=== PATIENT | male | born 1945 | race Caucasian/White ===

== ENCOUNTER → 2020-11-30 | Outpatient (CLI) | payer MEDICARE ==
[~2020-11-30] MED LIST: Acetaminophen325 M1 PO; NYSTATIN100000 UN1 SS; OMEP20ER PO; SIMV40 PO; TYLENOL PM PO; VISBIOME 112.51 EACH PO
[2020-11-30 16:35] LABS: Source, Urine Clean Catch
[2020-11-30 19:38] LABS: Bilirubin, Urine Neg (Neg); Blood, Urine 4+ (Neg); Glucose Qualitative, Urine Neg (Neg); Ketones, Urine 1+ (Neg); Leukocyte Esterase, Urine 3+ (Neg); Nitrite, Urine Neg (Neg); Protein, Urine 3+ (Neg); Specific Gravity, Urine 1.015 (1.003-1.022); Urobilinogen, Urine NORM (Normal)
[2020-11-30 19:39] LABS: Appearance, Urine Turbid (Clear); Color, Urine Yellow (P-Yellow); White Blood Cells, Urine TNTC /hpf (0-5)
[2020-11-30 19:41] LABS: Bacteria Mod /hpf; Red Blood Cells, Urine 0-2 /hpf (0-2); Squamous Epithelial Cells Not Seen /hpf (Few)
== END ==
LOC: PLD 16:33 → LAB SHORT 16:33 → LAB FUT 11-30 15:35
PROVIDERS: Nurse Practitioner
DX: R33.9 Retention of urine, unspecified (principal)
CPT/HCPCS: 81001; 87077; 87086; 87186

== ENCOUNTER 2021-01-06 12:43 | Inpatient (IN) | payer MEDICARE ==
[~2021-01-06] VITALS: Ht 180.3 cm; Wt 89.0 kg
[2021-01-06 13:22] LABS: Source, Urine Catheter
[2021-01-06 13:30] LABS: BASOPHILS ABSOLUTE AUTO 0.02 K/mm3 (0.00-0.23); BASOPHILS PERCENT AUTO 0 % (0-2); EOSINOPHILS ABSOLUTE AUTO 0.02 K/mm3 (0.00-0.68); EOSINOPHILS PERCENT AUTO 0 % (0-6); Hematocrit 41.4 % (37.0-53.0); Hemoglobin 13.4 g/dL (13.5-17.5); IMMATURE GRAN ABSOLUTE AUTO 0.03 K/mm3 (0.00-0.10); IMMATURE GRAN PERCENT AUTO 0 % (0-1); LYMPHOCYTES ABSOLUTE AUTO 0.53 K/mm3 (0.84-5.20); LYMPHOCYTES PERCENT AUTO 6 % (21-46); MONOCYTES ABSOLUTE AUTO 0.09 K/mm3 (0.16-1.47); MONOCYTES PERCENT AUTO 1 % (4-13); Mean Corpuscular HGB 28.1 pg (26.0-34.0); Mean Corpuscular HGB Conc 32.4 g/dL (31.5-36.5); Mean Corpuscular Volume 87 fL (80-100); NEUTROPHILS ABSOLUTE AUTO 8.48 K/mm3 (1.96-9.15); NEUTROPHILS PERCENT AUTO 93 % (41-73); Platelet Count 174 K/mm3 (150-400); RDW Coefficient Variation 13.7 % (11.7-14.2); Red Blood Cell Count 4.77 M/mm3 (4.30-5.90); White Blood Cell Count 9.17 K/mm3 (4.00-11.30)
[2021-01-06 13:31] LABS: Bilirubin, Urine Neg (Neg); Blood, Urine 5+ (Neg); Glucose Qualitative, Urine Neg (Neg); Ketones, Urine Neg (Neg); Leukocyte Esterase, Urine 3+ (Neg); Nitrite, Urine Pos (Neg); Protein, Urine 3+ (Neg); Specific Gravity, Urine 1.015 (1.003-1.022); Urobilinogen, Urine NORM (Normal)
[2021-01-06 13:48] LABS: Color, Urine Yellow (P-Yellow)
[2021-01-06 13:48] LABS: Alanine Aminotransfer (ALT/SGP 30 U/L (12-78); Albumin, Blood 3.4 g/dL (3.4-5.0); Albumin/Globulin Ratio 0.9 (0.8-1.8); Alk Phos 72 U/L (50-136); Anion Gap 8 mmol/L (6-16); Aspartate Aminotrans (AST/SGOT 21 U/L (12-37); Bilirubin, Total 0.6 mg/dL (0.1-1.0); Blood Urea Nitrogen 15 mg/dL (8-24); Bun/Creatinine Ratio 15.2 (12.0-20.0); CO2, Blood 25 mmol/L (21-32); Calcium, Blood 8.7 mg/dL (8.5-10.1); Chloride, Blood 108 mmol/L (98-108); Creatinine, Blood 0.99 mg/dL (0.60-1.20); Globulin, Blood 3.8 g/dL (2.2-4.0); Glomerular Filtration Rate >60 (60-); Glucose, Blood 93 mg/dL (70-99); Potassium, Blood 3.8 mmol/L (3.5-5.5); Sodium, Blood 141 mmol/L (136-145); Total Protein, Blood 7.2 g/dL (6.4-8.2)
[2021-01-06 13:49] LABS: Appearance, Urine Hazy (Clear); Bacteria Few /hpf; Red Blood Cells, Urine 50-100 /hpf (0-2); Squamous Epithelial Cells Not Seen /hpf (Few); White Blood Cells, Urine 25-50 /hpf (0-5)
[2021-01-06 14:09] LABS: Influenza A, PCR NEGATIVE (NEGATIVE); Influenza B, PCR NEGATIVE (NEGATIVE); Resp Syncytial Virus, PCR NEGATIVE (NEGATIVE); SARS-Cov-2 (COVID-19) PCR, MMC NEGATIVE (NEGATIVE)
[2021-01-06] MEDS ORDERED: OMEP20ER PO ×2 (14:59)
[2021-01-06] MEDS ORDERED: SIMV40 PO ×2 (14:59)
[2021-01-06] MEDS ORDERED: TYLENOL PM PO ×2 (15:01)
--- NOTE | 2021-01-06 19:35 | NUR ---
REPORT RECEIVED FROM KRUNAL TODD IN ER. ROOM READY.
[2021-01-07 03:33] LABS: Hematocrit 32.2 % (37.0-53.0); Hemoglobin 10.4 g/dL (13.5-17.5); Mean Corpuscular HGB 28.8 pg (26.0-34.0); Mean Corpuscular HGB Conc 32.3 g/dL (31.5-36.5); Mean Corpuscular Volume 89 fL (80-100); Mean Platelet Volume 11.4 fL (9.1-12.4); Platelet Count 144 K/mm3 (150-400); RDW Coefficient Variation 14.2 % (11.7-14.2); RDW Standard Deviation 46.3 fL (35.1-46.3); Red Blood Cell Count 3.61 M/mm3 (4.30-5.90); White Blood Cell Count 18.91 K/mm3 (4.00-11.30)
[2021-01-07 03:59] LABS: Albumin, Blood 3.3 g/dL (3.4-5.0); Anion Gap 7 mmol/L (6-16); Blood Urea Nitrogen 15 mg/dL (8-24); Bun/Creatinine Ratio 13.8 (12.0-20.0); CO2, Blood 24 mmol/L (21-32); Calcium, Blood 7.6 mg/dL (8.5-10.1); Chloride, Blood 110 mmol/L (98-108); Creatinine, Blood 1.09 mg/dL (0.60-1.20); Glomerular Filtration Rate >60 (60-); Glucose, Blood 128 mg/dL (70-99); Potassium, Blood 4.2 mmol/L (3.5-5.5); Sodium, Blood 141 mmol/L (136-145)
[2021-01-07 05:18] LABS: BAND PERCENT MAN 16 % (0-8); BASOPHILS PERCENT MAN 0 % (0-2); EOSINOPHILS PERCENT MAN 0 % (0-6); LYMPHOCYTES ABSOLUTE MAN 0.75 K/mm3 (0.84-5.20); LYMPHOCYTES PERCENT MAN 4 % (21-46); MONOCYTES ABSOLUTE MAN 0.37 K/mm3 (0.16-1.47); MONOCYTES PERCENT MAN 2 % (4-13); NEUTROPHILS ABSOLUTE MAN 17.77 K/mm3 (1.96-9.15); SEG NEUTROPHILS PERCENT MAN 78 % (41-73); TOTAL CELLS COUNTED 100
--- NOTE | 2021-01-07 06:34 | NUR ---
SHIFT SUMMARY PT HAD FAIR EVENING. REMAINS ALERT AND ORIENTED. PT HAS AN 18G TO LEFT AC, SITE WNL, DRESSING C/D/I WITH [id number] KCL INF @ 150ML/HR AND LEVOPHED INF @ 3MCG/MIN. PT HAS SL 20G TO RIGHT FA, DRESSING C/D/I, SITE WNL. PT VOIDS PER URINAL. CALL LIGHT IN REACH, PT USES APPROPRIATELY. PT TOLERATING PO FLUIDS AND FOOD WELL. SATS >92% ON 2L O2 PER NC. PT BP IMPROVED AFTER STARTING LEVOPHED. PT FINALLY VOIDED 600ML ROGER COLORED URINE. LUNG SOUNDS CLEAR. HR SR TO SB. PT DENIES CP/SOB CURRENTLY. WILL REPORT TO ONCOMING SHIFT.
--- NOTE | 2021-01-07 07:45 | NUR ---
ASSESSMENT- PT AWAKE, ALERT, COOPERATIVE. DENIES ANY PAIN OR DISCOMFORT. SINUS DERIAN-DOES DECREASE RATE BRIEFLY TO 39-ASYMPTOMATIC. BP IMPROVED. LEVOPHED ON HOLD. NS WITH KCL AT 150 CC/HR. LAC INTACT, BLOOD RETURN PRESENT. LUNGS CLEAR, NO SOB. SKIN W/D. VOIDING. ABLE TO MOVE SELF IN BED. FEBRILE
--- NOTE | 2021-01-07 11:22 | NUR ---
UPDATE TO AMILCAR KIRBY'S SIGNIFICANT OTHER. QUESTIONS ANSWERED. DR. VELARDE HERE-UPDATED
--- NOTE | 2021-01-07 11:53 | NUR ---
EKG DONE. DENIES COMPLAINTS. SECOND BLOOD CULTURE POSITIVE.
--- NOTE | 2021-01-07 13:31 | NUR ---
PT SLEEPING WITHOUT COMPLAINTS. VSS. HEARTRATE 50'S
--- NOTE | 2021-01-07 15:29 | NUR ---
DR. OWENS HERE-ASSESSED PT, ORDERS FOR PCU. DENIES ANY PAIN OR SOB. COLOR WNL, SKIN W/D. WATCHING TV, NO DISTRESS
--- NOTE | 2021-01-07 17:40 | NUR ---
SITTING UP IN BED EATING, DENIES COMPLAINTS. VSS. HERE. CONTINUE TO MONITOR. PCU STATUS
--- NOTE | 2021-01-07 21:22 | NUR ---
ELEVATED TEMP PATIENT'S HEAT TURNED DOWN AT THE TIME TYLENOL WAS GIVEN FOR AN ELEVATED TEMP. TEMP STILL ELEVATED AFTER TYLENOL SO THE HEAT WAS TURNE DOWN FURTHER IN ROOM, BLANKETS AND SOCKS REMOVED, ICE PACKS PLACED IN PATIENT'S ARMPITS, AND A FAN BLOWING ON PATIENT AT THIS TIME. PATIENT REPORTS HE IS FEELING "PRETTY GOOD" AT THIS TIME.
[2021-01-08 03:53] LABS: BASOPHILS ABSOLUTE AUTO 0.05 K/mm3 (0.00-0.23); BASOPHILS PERCENT AUTO 0 % (0-2); EOSINOPHILS ABSOLUTE AUTO 0.04 K/mm3 (0.00-0.68); EOSINOPHILS PERCENT AUTO 0 % (0-6); Hemoglobin 11.4 g/dL (13.5-17.5); IMMATURE GRAN ABSOLUTE AUTO 0.03 K/mm3 (0.00-0.10); IMMATURE GRAN PERCENT AUTO 0 % (0-1); LYMPHOCYTES ABSOLUTE AUTO 1.14 K/mm3 (0.84-5.20); LYMPHOCYTES PERCENT AUTO 9 % (21-46); MONOCYTES ABSOLUTE AUTO 0.84 K/mm3 (0.16-1.47); MONOCYTES PERCENT AUTO 7 % (4-13); Mean Corpuscular HGB 28.4 pg (26.0-34.0); Mean Corpuscular HGB Conc 31.7 g/dL (31.5-36.5); Mean Corpuscular Volume 90 fL (80-100); Mean Platelet Volume 11.5 fL (9.1-12.4); NEUTROPHILS ABSOLUTE AUTO 10.13 K/mm3 (1.96-9.15); NEUTROPHILS PERCENT AUTO 83 % (41-73); Platelet Count 153 K/mm3 (150-400); RDW Coefficient Variation 14.5 % (11.7-14.2); RDW Standard Deviation 47.7 fL (35.1-46.3); Red Blood Cell Count 4.02 M/mm3 (4.30-5.90); White Blood Cell Count 12.23 K/mm3 (4.00-11.30)
[2021-01-08 04:09] LABS: Anion Gap 3 mmol/L (6-16); Blood Urea Nitrogen 13 mg/dL (8-24); Bun/Creatinine Ratio 14.7 (12.0-20.0); CO2, Blood 27 mmol/L (21-32); Calcium, Blood 7.9 mg/dL (8.5-10.1); Chloride, Blood 110 mmol/L (98-108); Creatinine, Blood 0.89 mg/dL (0.60-1.20); Glomerular Filtration Rate >60 (60-); Glucose, Blood 107 mg/dL (70-99); Potassium, Blood 4.3 mmol/L (3.5-5.5); Sodium, Blood 140 mmol/L (136-145)
--- NOTE | 2021-01-08 06:30 | NUR ---
SHIFT SUMMARY PATIENT PLEASENT AND COOPERATIVE THROUGHOUT THE NIGHT. PATIENT APPEARED TO BE ABLE TO MOVE SELF ABOUT IN BED. PATIENT APPEARED TO BE ABLE TO NAP ON AND OFF LAST NIGHT BUT STATED THAT HE FELT LIKE HE WAS AWAKE MOST OF THE NIGHT. PATIENT CURRENTLY RESTING IN BED ATTEMPTING TO SLEEP. PATIENT HAS BEEN SBA IN ROOM. WILL CONTINUE CURRENT PLAN OF CARE AND WILL GIVE REPORT TO ONCOMING RN.
--- NOTE | 2021-01-08 09:23 | NUR ---
PT RESTING W/O PAIN OR DISTRESS. TEMP NOTED AND WILL F/U. VS NOTED. NO DISTRESS WIT URINATION OR PAIN NOTED. TAKING PO WELL BUT SMALL AMOUNTS ON B-FAST.
--- NOTE | 2021-01-08 10:52 | NUR ---
PT TEMP REMAINS SL ELEVATED AT 101,0 AND WANTS TO WAIT ON FURTHER INTERVENTION AT THIS TIME. JUST FINISHED BATH, HAS HAD TYLENOL AND DRINKING ICE WATER. WILL FOLLOW.
--- NOTE | 2021-01-08 14:14 | NUR ---
echocardiogram complete
--- NOTE | 2021-01-08 18:41 | NUR ---
PT HAS BEEN IN TO VISIT AND HAS NOW GONE HOME. PT IS RESTING WELL WITH STABLE VS. I/O NOTED AND PT LAST TME NOTED IN 99 RANGE. PT HR SB IN 50 RANGE WHILE SLEEPING AND NO DISTRESS NOTED. 2L WAS 89-90 RANGE OFF O2 THUS IT WAS REPLACED AT 2L AND SATS ADIQUATE. PT VOIDING W/O DISTRESS.
--- NOTE | 2021-01-09 05:50 | NUR ---
SHIFT SUMMARY PATIENT ALERT AND ORIENTED. HAD NO COMPLAINTS OF CHEST PAIN OR SHORTNESS OF BREATH. PATIENT CONTINUES TO BE FEBRILE, TREATED WITH TYLENOL PER EMAR. BLANKETS REMOVED AND FAN PLACED ON PATIENT TO ENCOURAGE COOLING. IV IN LEFT AC PATENT AND FLUSHED. IV IN RIGHT FOREARM PATENT AND INFUSING. BED IN LOWEST POSITION WITH WHEELS LOCKED. CALL LIGHT WITHIN REACH. REPORT GIVEN TO ONCOMING RN.
--- NOTE | 2021-01-09 08:25 | NUR ---
CARE OF PT ASSUMED AT 0700. PT SEDATED ON PROPOFOL AT 45MCG, PRECEDEX AT 0.7MCG FOR MECH VENT. ATIVAN 2MG GIVEN THIS AM FOR COUGHING/STACKING ON VENT, CAUSING SATS TO DROP TO 84%. PT'S SATS >90% WITHIN 2MIN OF GIVING ATIVAN. LARGE AMT OF THICK RAYO SECRETIONS SX'D FROM [facility]. PT NOT GIVEN SEDATION VAC AT THIS TIME D/T DESATURATION W STIMULATION/COUGHING.
--- NOTE | 2021-01-09 08:54 | NUR ---
CARE ASSUMED OF PT AT 0700. PT AWAKE, ATE BREAKFAST THEN ASSISTED TO TOILET, PT HAD BM. PT VOIDING WELL. PT UP IN CHAIR NOW. PT DENIES C/O PAIN, DOES C/O SOME MILD SOB W EXERTION. DR SIERRA TO BE CONSULTED FOR ABX.
--- NOTE | 2021-01-09 09:08 | NUR ---
DR RANKIN IN TO SEE PT; SEE NEW ORDERS. BLOOD CX'S REPEATED D/T FEVERS
[2021-01-09 09:24] LABS: Vancomycin, Trough 3.3 ug/mL (5.0-10.0)
--- NOTE | 2021-01-09 13:17 | NUR ---
I.S. GIVEN WITH INSTRUCTIONS.
--- NOTE | 2021-01-09 14:59 | NUR ---
DR SIERRA (ID) IN TO SEE PT.
--- NOTE | 2021-01-09 15:45 | NUR ---
PT'S AT BEDSIDE. FULL UPDATE GIVEN W PT'S PERMISSION. 02 REMOVED. SATS 97% ON RA. PHYSICAL THERAPY TO WORK W PT THIS AFTERNOON.
--- NOTE | 2021-01-09 16:19 | NUR ---
PT TRANSFERED TO MEDICAL FLOOR IN STABLE CONDITION.
--- NOTE | 2021-01-09 17:58 | NUR ---
Spiritual care note: Per admission trigger, I was tasked to meet with Mr. Chapa to educate on the benfits of ACP. He was very interest in completing an Advanced Directive as he would like his SO to be MPOA and not his family. I guided him through the AD document. Awaiting his SO to arrive in order to notarize and complete. I will remain available.
--- NOTE | 2021-01-09 19:38 | NUR ---
SHIFT SUMMARY XIMENA ARRIVED FROM ICU AROUND 415PM. DENIES URINARY SYMPTOMS. SBA IN ROOM. AT BEDSIDE MOST OF THE AFTERNOON. ROOM AIR, PIV SL. DENIED PAIN. CALL LIGHT IN REACH, REPORT GIVEN TO NIGHT NURSE
--- NOTE | 2021-01-10 07:02 | NUR ---
SHIFT SUMMARY NO ACUTE CHANGES THIS SHIFT. AOX4. VSS. DENIES PAIN, N/V, DYSPNEA. IND TO RESTROOM, STABLE GAIT. PLAN TO DC HOME WITHIN A FEW DAYS ON PO ANTIBIOTICS. CALL LIGHT IN REACH.
[2021-01-10 09:11] LABS: BASOPHILS ABSOLUTE AUTO 0.05 K/mm3 (0.00-0.23); BASOPHILS PERCENT AUTO 1 % (0-2); EOSINOPHILS ABSOLUTE AUTO 0.25 K/mm3 (0.00-0.68); EOSINOPHILS PERCENT AUTO 3 % (0-6); Hematocrit 39.3 % (37.0-53.0); Hemoglobin 12.7 g/dL (13.5-17.5); IMMATURE GRAN ABSOLUTE AUTO 0.04 K/mm3 (0.00-0.10); IMMATURE GRAN PERCENT AUTO 1 % (0-1); LYMPHOCYTES ABSOLUTE AUTO 1.86 K/mm3 (0.84-5.20); LYMPHOCYTES PERCENT AUTO 21 % (21-46); MONOCYTES ABSOLUTE AUTO 0.79 K/mm3 (0.16-1.47); MONOCYTES PERCENT AUTO 9 % (4-13); Mean Corpuscular HGB 28.3 pg (26.0-34.0); Mean Corpuscular HGB Conc 32.3 g/dL (31.5-36.5); Mean Corpuscular Volume 88 fL (80-100); Mean Platelet Volume 11.1 fL (9.1-12.4); NEUTROPHILS ABSOLUTE AUTO 5.75 K/mm3 (1.96-9.15); NEUTROPHILS PERCENT AUTO 66 % (41-73); Platelet Count 195 K/mm3 (150-400); RDW Coefficient Variation 13.8 % (11.7-14.2); RDW Standard Deviation 44.5 fL (35.1-46.3); Red Blood Cell Count 4.49 M/mm3 (4.30-5.90); White Blood Cell Count 8.74 K/mm3 (4.00-11.30)
[2021-01-10 09:33] LABS: Albumin, Blood 3.1 g/dL (3.4-5.0); Anion Gap 2 mmol/L (6-16); Blood Urea Nitrogen 11 mg/dL (8-24); Bun/Creatinine Ratio 14.3 (12.0-20.0); CO2, Blood 31 mmol/L (21-32); Calcium, Blood 8.9 mg/dL (8.5-10.1); Chloride, Blood 106 mmol/L (98-108); Creatinine, Blood 0.77 mg/dL (0.60-1.20); Glomerular Filtration Rate >60 (60-); Glucose, Blood 105 mg/dL (70-99); Magnesium, Blood 2.1 mg/dL (1.6-2.4); Sodium, Blood 139 mmol/L (136-145); Vancomycin, Trough 13.8 ug/mL (5.0-10.0)
--- NOTE | 2021-01-10 19:34 | NUR ---
SHIFT SUMMARY XIMENA DENIED PAIN THIS SHIFT, DENIES URINARY SYMPTOMS. VISITED, INDEP IN ROOM. THRUSH IN MOUTH, CALLED DR RANKIN AND GOT NYSTATIN SWISH ORDERED. CALL LIGHT IN REACH, REPORT GIVEN TO NIGHT NURSE
--- NOTE | 2021-01-11 06:06 | NUR ---
SHIFT SUMMARY PT HAS RESTED MOST OF THE NIGHT AND HAS DENIED NEEDS, NO URINARY COMPLAINTS THIS SHIFT. HE HAS BEEN UP AND INDEPENDENT IN THE ROOM. ASSESSMENT HAS REMAINED UNCHANGED. PLAN IS FOR DC TODAY. BED IN LOWEST POSITION, CALL LIGHT WITHIN REACH.
[2021-01-11] MEDS ORDERED: NYSTATIN100000 UN1 SS ×2 (14:04)
[2021-01-11] MEDS ORDERED: Acetaminophen325 M1 PO ×2 (14:04)
[2021-01-11] MEDS ORDERED: VISBIOME 112.51 EACH PO ×2 (14:32)
--- NOTE | 2021-01-11 15:22 | NUR ---
DISCHARGE REVIEWED WITH PT: IV PULLED INTACT X2. SARBJITGLLARRY REMAINS IN [place] FOR OUTPATIENT INFUSION. PT TO SEE THE TALITA TOMORROW AT 1330/ NO TELE. PT VERBALIZED UNDERSTANDING OF MEDS AND INST. ALSO EDUCATED ON IV CLEANLINESS AND WRAPPING WITH SHOWERS. KEEP DRY. PT TO DRESS SELF AND TO COME ANDROID PLATFORM DEVELOPER SHORTLY. WILL CALL WHEN SHE ARRIVES/
--- NOTE | 2021-01-11 16:21 | NUR ---
WHEELED PT TO DOOR AT 1615. WALKED WITH US.
== END 2021-01-11 16:06 | disposition home or self-care (01) | DRG 698 ==
LOC: ER 12:43 → ICUW 15:38 → MEDS 15:38 → ER 15:38 → ICUW 19:50 → MEDS 01-09 16:19
PROVIDERS: Emergency Medicine; Internal Medicine; Internal Medicine Critical Care Medicine; ADMIT Internal Medicine
PROC: 3E033XZ Introduction of Vasopressor into Peripheral Vein, Percutaneous Approach (ICD-10-PCS; principal; 2021-01-09)
DX: T83.511A Infection and inflammatory reaction due to indwelling urethral catheter, initial encounter (principal); A41.1 Sepsis due to other specified staphylococcus; R65.21 Severe sepsis with septic shock; E87.2 Acidosis; N13.8 Other obstructive and reflux uropathy; N39.0 Urinary tract infection, site not specified; Z20.822 Contact with and (suspected) exposure to COVID-19; E78.5 Hyperlipidemia, unspecified; G47.9 Sleep disorder, unspecified; R00.1 Bradycardia, unspecified; N40.1 Benign prostatic hyperplasia with lower urinary tract symptoms; Z79.899 Other long term (current) drug therapy; Z87.891 Personal history of nicotine dependence
CPT/HCPCS: 0241U; 36415; 71045; 80048; 80053; 80069; 80202; 81001; 83605; 83735; 84145; 85025; 87040; 87077; 87086; 87186; 93005; 93010; 93306; 96361; 96365; 97162; 97530; 99285-25; A9270; J0696; J0878; J1650; J3370; J3480; J7030; J7050; J7060; P9046

== ENCOUNTER 2021-01-12 09:17 | Day surgery (SDC) | payer MEDICARE | END 2021-01-12 14:30 | disposition home or self-care (01) | LOC: ATC 09:17 | DX: A41.9 Sepsis, unspecified organism (principal); R78.81 Bacteremia; B95.7 Other staphylococcus as the cause of diseases classified elsewhere; E78.5 Hyperlipidemia, unspecified | CPT/HCPCS: 96365; J0878 ==

== ENCOUNTER 2021-01-13 09:49 | Day surgery (SDC) | payer MEDICARE | END 2021-01-13 11:35 | disposition home or self-care (01) | LOC: ATC 09:49 | DX: R78.81 Bacteremia (principal); B95.7 Other staphylococcus as the cause of diseases classified elsewhere; E78.5 Hyperlipidemia, unspecified; R93.89 Abnormal findings on diagnostic imaging of other specified body structures | CPT/HCPCS: 96365; J0878 ==

== ENCOUNTER 2021-01-14 13:32 | Day surgery (SDC) | payer MEDICARE | END 2021-01-14 14:00 | disposition home or self-care (01) | LOC: ATC 13:32 | DX: R78.81 Bacteremia (principal); B95.7 Other staphylococcus as the cause of diseases classified elsewhere; E78.5 Hyperlipidemia, unspecified; R91.8 Other nonspecific abnormal finding of lung field | CPT/HCPCS: 96365; J0878 ==

== ENCOUNTER 2021-01-15 00:42 | Day surgery (SDC) | payer MEDICARE | END 2021-01-15 13:50 | disposition home or self-care (01) | LOC: ATC 00:42 | DX: R78.81 Bacteremia (principal); B95.7 Other staphylococcus as the cause of diseases classified elsewhere; E78.5 Hyperlipidemia, unspecified; G47.9 Sleep disorder, unspecified | CPT/HCPCS: 96365; J0878 ==

== ENCOUNTER 2021-01-16 00:38 | Day surgery (SDC) | payer MEDICARE | END 2021-01-16 14:29 | disposition home or self-care (01) | LOC: ATC 00:38 | DX: R78.81 Bacteremia (principal); B95.7 Other staphylococcus as the cause of diseases classified elsewhere; E78.5 Hyperlipidemia, unspecified; Z90.79 Acquired absence of other genital organ(s); Z98.890 Other specified postprocedural states | CPT/HCPCS: 96365; J0878 ==

== ENCOUNTER 2021-01-17 00:42 | Day surgery (SDC) | payer MEDICARE | END 2021-01-17 14:20 | disposition home or self-care (01) | LOC: ATC 00:42 | DX: A41.9 Sepsis, unspecified organism (principal); B95.8 Unspecified staphylococcus as the cause of diseases classified elsewhere; R65.20 Severe sepsis without septic shock; E78.5 Hyperlipidemia, unspecified; A41.2 Sepsis due to unspecified staphylococcus | CPT/HCPCS: 96365; J0878 ==

== ENCOUNTER 2021-01-18 00:05 | Day surgery (SDC) | payer MEDICARE | END 2021-01-18 14:36 | disposition home or self-care (01) | LOC: ATC 00:05 | DX: A41.2 Sepsis due to unspecified staphylococcus (principal); E78.5 Hyperlipidemia, unspecified | CPT/HCPCS: 96365; J0878 ==

== ENCOUNTER 2021-01-19 00:05 | Day surgery (SDC) | payer MEDICARE | END 2021-01-19 14:03 | disposition home or self-care (01) | LOC: ATC 00:05 | DX: R78.81 Bacteremia (principal); B95.7 Other staphylococcus as the cause of diseases classified elsewhere; E78.5 Hyperlipidemia, unspecified | CPT/HCPCS: 96365; J0878 ==